=== PATIENT | female | born 1955 | race Asian ===

== ENCOUNTER 2018-01-07 08:44 | Day surgery (SDC) | payer BC ==
[2018-01-07] VITALS (10 sets, daily range): BP systolic 92–121; BP diastolic 50–79
[~2018-01-07] VITALS: Ht 154.9 cm; Wt 50.8 kg
[~2018-01-07 08:44] MED LIST: MULTIVITAMINS1 EAC2 PO
--- NOTE | 2018-01-07 09:21 | Short Stay Surgery H&P ---
History of Present Illness History of Present Illness Chief Complaint History of familial colon CA/screening colon HPI Ryann Wolff is a 62 year old female who was admitted on for screening colon cancer Patient History Allergies: Coded Allergies: No Known Allergies (Unverified , 10/24/12) PAST MEDICAL HISTORY: (1) Lipoma (2) Hyperlipidemia Medication History Scheduled Multivitamins* (Multivitamins*), 1 EACH PO DAILY, (Reported) Review of Systems Cardiovascular: Reports: no symptoms Respiratory: Reports: no symptoms Skeletal: Reports: no symptoms Gastrointestinal: Reports: no symptoms Genitourinary: Reports: no symptoms Neurologic: Reports: no symptoms Endocrine: Reports: no symptoms Hematologic: Reports: no symptoms Physical Exam Skin: normal HENT: normal Heart: normal Lungs: normal Abdomen: normal Extremities: normal Genitourinary: normal Plan Plan of Care Total screening colonoscopy Preop Interventions None. Summary of Findings See the reports Attestation Are the patient's medical conditions optimized for surgery? Attestation Response: yes Rajan Mcghee MD Jan 07, 2018 09:21
--- NOTE | 2018-01-07 09:22 | Pre-Procedure Note/Attestation ---
Pre-Procedure Note/Attestation Complete Prior to Procedure Planned Procedure: left Procedure Narrative: Endoscopic exam of the colon for screening colonoscopy Indications for Procedure Pre-Operative Diagnosis: R/O colon polyp/CA Attestation I attest that I discussed the nature of the procedure; its benefits; risks and complications; and alternatives (and the risks and benefits of such alternatives ), prior to the procedure, with the patient (or the patient's legal electronics parts sales representative). I attest that, if there was a reasonable possibility of needing a blood transfusion, the patient (or the patient's legal electronics parts sales representative) was given the [facility] standardized written summary, pursuant to the Khurram Guion Blood Safety Act ([place] Health and Safety Code # 1645, as amended). I attest that I re-evaluated the patient just prior to the surgery and that there has been no change in the patient's H&P, except as documented below: Rajan Mcghee MD Jan 07, 2018 09:22
--- NOTE | 2018-01-07 10:02 | Anethesia Preoperative Eval ---
Anesthesia Pre-op PMH/ROS General Date of Evaluation: Jan 07, 2018 Time of Evaluation: 09:00 ASA Score: ASA 1 Mallampati Score Class I : Soft palate, uvula, fauces, pillars visible Class II: Soft palate, uvula, fauces visible Class III: Soft palate, base of uvula visible Class IV: Only hard plate visible Mallampati Classification: Class I Allergies: Coded Allergies: No Known Allergies (Unverified , 10/24/12) Anesthesia Pre-op Phys. Exam Physician Exam Last Vital Signs Date Time Temp Pulse Resp B/P (MAP) Pulse Ox O2 Delivery O2 Flow Rate FiO2 01/07/18 09:21 98.0 74 18 121/79 96 Room Air 98.0 Airway Exam Mallampati Score: Class I Eric Mayen MD Jan 07, 2018 10:02
--- NOTE | 2018-01-07 10:05 | Endoscopy Procedure Note ---
Endoscopy Procedure Note General Indication for Procedure: History of familial colon cancer Procedures Performed: colonoscopy - Completely normal total colonoscopy. Specimen: none Estimated Blood Loss: none Anesthesia Anesthesiologist: Dr. Mayen Anesthesia: moderate sedation Medications Medication Given: see anesthesia record Inserted Devices Implant(s) used?: No Quality Quality of Bowel Preparation: Fair Did scope reach the cecum?: Yes Was there any complications?: No GI Core Measures 50 yrs or older w/o bx or poly: Yes 10yrs. F/U not recommended: Yes If not recommended, why?: <3yrs. since last colonoscopy: Yes Med reason:<3 yrs.: System Reason:<3 yrs.: Rajan Mcghee MD Jan 07, 2018 10:05
--- NOTE | 2018-01-07 10:06 | Discharge Instructions ---
Discharge Instructions Discharge Instructions Follow up with: ck with docotor after 2 weeks in the office. For Congestive Heart Failure Reminder Report to your physician any weight gain of 5 pounds or more in one week. Rajan Mcghee MD Jan 07, 2018 10:06
--- NOTE | 2018-01-07 10:14 | Immediate Post-Op Evaluation ---
Immediate Post-Op Evalulation Immediate Post-Op Evalulation Procedure: colonoscopy Date of Evaluation: Jan 07, 2018 Time of Evaluation: 10:14 Nausea: No Vomiting: No Eric Mayen MD Jan 07, 2018 10:14
[2018-01-07] MEDS ORDERED: fentaNYL 100 mcg/2 mL IV PRN (10:15)
--- NOTE | 2018-01-07 10:57 | 48 Hour Post Anesthesia Eval ---
Post Anesthesia Evaluation Procedure: colonoscopy Date of Evaluation: Jan 07, 2018 Time of Evaluation: 10:56 Nausea: No Vomiting: No Eric Mayen MD Jan 07, 2018 10:57
--- NOTE | 2018-01-07 19:31 | Procedure Note ---
DATE OF PROCEDURE: 01/07/2018 SURGEON: Rajan Mcghee M.D. PROCEDURE: Total colonoscopy. PREOPERATIVE DIAGNOSIS: Screening colonoscopy. POSTOPERATIVE DIAGNOSIS: Complete normal total colonoscopy. No evidence of polyps or tumors. MEDICATION USED: Per Dr. Mayen, anesthesiologist. INSTRUMENT: GIF Olympus video colonoscope. DESCRIPTION OF PROCEDURE: The patient, after arriving in endoscopy unit, was told about risks and benefits of the procedure, which she accepted and signed informed consent. At this time, she was put in the left lateral decubitus position. After adequate IV sedation, the scope was gently passed through the anal area, which revealed normal findings including the retroflexion maneuver was applied in the rectum, which did not reveal any abnormalities such as tumors, polyps, inflammatory process, etc. At this point, the scope was passed through normal looking rectum, introduced into rectosigmoid area, and through some redundancy, gradually reached towards the left descending colon and reached to the splenic flexure. These areas revealed to be completely normal without any evidence of polyps or tumors or abnormalities. The colon cleanup was fair and there was liquidy stool along the colon that had to be suctioned and irrigated. As such, a small diminutive polypoid lesion could not be ruled out. However, there was no any gross pathology noted as the scope was gradually passed through the transverse colon, hepatic flexure, and guided into the right colon all the way to the base of the cecum where the appendiceal opening was visualized. There was no any abnormality as I mentioned. At this point, within 5 to 6 minutes, the scope was gradually pulled out and complete evaluation of the colon did not reveal any other abnormalities. The patient tolerated the procedure well and left the endoscopy room in a good condition. Rajan Mcghee M.D. DR: CHADD JOB#: [id number] CC:
== END 2018-01-07 10:25 | disposition home or self-care (01) ==
LOC: GAS 08:44
DX: Z12.11 Encounter for screening for malignant neoplasm of colon (principal); Z80.0 Family history of malignant neoplasm of digestive organs; E78.5 Hyperlipidemia, unspecified
CPT/HCPCS: 94003; 94150